=== PATIENT | female | born 1995 | race Caucasian/White ===

== ENCOUNTER 2016-06-29 00:01 | Emergency (ER) | payer MEDICAID ==
[2016-06-29] MEDS ORDERED: ALBUTEROL SULFATE 2.5 MG/0.5 ML VIAL.NEB IH ONE ×2 (00:04→00:21)
[2016-06-29 00:13] VITALS: BP 132/69
--- NOTE | 2016-06-29 00:29 | ERNOTE ---
Dyspnea - General Presenting Symptoms: shortness of breath Time Seen by Provider: 06/29/16 00:04 Source: patient Exam Limitations: no limitations - Immun/Allergies/Home Medications Immunizations: IMMUNIZATION HX History of Influenza Vaccine No Hx Pneumococcal Vaccination No Home Medications: HOME MEDICATIONS Albuterol Sulfate [Proair Respiclick] 90 mcg IH Q4H PRN #1 bhargav 06/29/16 [ Last Taken Unknown] - History of Present Illness Narrative: Patient was in the OB unit with a friend and fell asleep briefly and woke up short of breath. She has a history of asthma and forgot her rescue inhaler at home, denies any causing events. She only uses her inhaler about once a month Date (Duration): 06/28/16 Time (Timing): 23:45 Treatment [employer]PER[employer]OR [employer]: none Initiating event: Reports: out of meds. Denies: upper resp illness, sports/ exercise, aspiration/choking, allergy to environment, exposure to smoke, exposure to mold Frequency of episodes: Reports: occassional episodes Associated Symptoms-Dyspnea: Denies: fever/chills, sweating, chest pain/ discomfort, palpitations, cough Prior Treatment: Denies: recently seen, currently on antibiotics Review of Systems - Review of Systems Constitutional: Absent: recent illness, fever, chills ENT: Absent: nose congestion, nasal drainage, sore throat Respiratory: Present: See HPI, shortness of breath. Absent: cough Cardiology: Absent: chest pain Gastrointestinal/Abdominal: Absent: nausea, vomiting, diarrhea, abdominal pain Genitourinary: Present: no symptoms reported Neurological: Absent: headache - Patient's Past Medical History Patient History - Medical: No pertinent hx Patient History - Cardiac/Respiratory: Asthma Patient History - Cancer: No Hx of Cancer Patient History - Surgical Procedures: No surgical history Patient History - Other: None - Social History Living Situations: home Psych History: Hx of Depression Smoking Status: Never smoker Alcohol Use: none Drug Use: none - Immunizations Hx Pneumococcal Vaccination: No History of Influenza Vaccine: No Physical Exam - Physical Exam General Appearance: Present: wd/wn, alert, mild distress, anxious Eye Exam: Normal inspection: bilateral, PERRL: bilateral Ears, Nose, Throat: Present: normal except -, nasal congestion, pharyngeal erythema - mild Neck: Present: normal inspection, nontender, supple. Absent: lymphadenopathy (R ), lymphadenopathy (L) Respiratory: Present: respiratory distress - slight, decreased breath sounds, expiration (prolonged) Cardiovascular/Chest: Present: regular rate, rhythm, no murmur Gastrointestinal/Abdominal: Present: nontender Neurological Exam: Present: alert, oriented, normal mood/affect Skin Exam: Present: normal color, warm/dry ED Progress - Vital Signs Patient's Vital Signs:: I have reviewed the patient's vital signs. Vital Signs: Vital Signs 06/29/16 00:03 Temperature 37.2 C Pulse Rate 108 H Respiratory 28 H Rate Blood Pressure 132/69 O2 Sat by Pulse 97 Oximetry - Progress/Reassessment Chief Complaint: Dyspnea Progress Note-Subjective: 06/29/16 00:24 feeling much better after neb treatment lungs clear to auscultation patient would like to go home Departure Clinical Impression: Asthma attack - Departure Disposition: Home self-care Condition: Good Instructions: Asthma, Adult, [id number] Referrals: Desean Wills MD [Non Staff Physicians] - Prescriptions: Albuterol Sulfate [Proair Respiclick] 90 mcg IH Q4H PRN #1 [email or web address] PRN Reason: Shortness Of Breath
--- OUTSIDE RECORDS SUMMARY | 2016-06-29 00:39 | XMS REPORT | Continuity of Care Document ---
:1995 Author Organization [employer] [facility] [place] [address] Care Team Providers Name Role Phone Desean Wills Primary Care Provider [phone] Source Comments This disclosure is being made pursuant to the iMeigu program and maynot contain all information available regarding this patient.[employer] [facility] Active Allergies and Adverse Reactions No Known Allergies Current Medications Be aware that medications may not be up to date as of this document. Alwaysverify current medications with the patient. No known medications Active Problems Not on file Most Recent Encounters Date Type Specialty Providers Description 05/26/2016 Ophth Exam Ophthalmology Camille Barry, OD Myopia, bilateral - Both Eyes (Primary Dx); Astigmatism, bilateral - Both Eyes Social History Tobacco Use Types Packs/Day Years Used Date Never Smoker Plan of Care Date Type Specialty Providers Description 03/04/2017 Appointment Ophthalmology Camille Barry, OD [facility] [place] [address] [phone] (Fax) Health Maintenance Due Date Last Done Comments HPV Vaccine (9-26YO) (1 of 3 - Female 3 Dose Series) 2005 Chlamydia Screening 2010 Meningococcal Vaccine (1 of 1) 2010 Tetanus/Pertussis (1 - Tdap) 2013 Pap Smear 09/16/2015 Influenza Immunization (#1) 2015 Results from Last 3 Months Not on file
--- OUTSIDE RECORDS SUMMARY | 2016-06-29 00:39 | XMS REPORT | Continuity of Care Document ---
:1995 Author Organization [facility] ([facility]) Address [place] [address] Phone [phone] Care Team Providers Name Role Phone Unavailable Primary Care Provider Unavailable Source Comments This disclosure is being made pursuant to the Care Everywhere program, applicable federal and state laws, and may not contain all informaitonavailable regarding this patient.[facility] ([facility]) Active Allergies and Adverse Reactions No Active Allergies Current Medications Not on file Active Problems Problem Noted Date Abdominal pain, epigastric 12/30/2006 Social History Tobacco Use Types Packs/Day Years Used Date Never Assessed Last Filed Vital Signs Vital Sign Reading Time Taken Blood Pressure 119/69 12/30/2006 2:23 PM CDT Pulse 106 12/30/2006 2:23 PM CDT Temperature 36.8 C (98.24 F) 12/30/2006 2:23 PM CDT Respiratory Rate 24 12/30/2006 2:23 PM CDT Height 1.485 m (4' 10.46") 12/30/2006 2:23 PM CDT Weight 57.797 kg (127 lb 6.7 oz) 12/30/2006 2:23 PM CDT Body Mass Index 26.21 12/30/2006 2:23 PM CDT Oxygen Saturation - - Plan of Care Health Maintenance Due Date Last Done Comments Hepatitis B Vaccine (1 of 3 - Primary Series) 1994 HPV Vaccine (1 of 3 - Female/Unknown 3 Dose Series) 2005 Tdap Vaccine 2005 Meningococcal Vaccine (1 of 1) 2010 Cervical Cancer Screening 2012 Lipid Disorder Screening 2012 MMR Vaccine 2012 Td Vaccine 2012 Varicella Vaccine (1 of 2 - Adult - No Evidence of 2012 Immunity) Influenza Vaccine: Seasonal (#1) 11/18/2015 Results from Last 3 Months Not on file
== END 2016-06-29 00:30 | disposition home or self-care (01) ==
LOC: ER 00:01
DX: R06.02 Shortness of breath (principal); J45.901 Unspecified asthma with (acute) exacerbation

== ENCOUNTER 2019-09-06 18:01 | Inpatient (IN) ==
[2019-09-06 19:10] LABS: Random Urine Total Protein 18.8 mg/dL (0-12)
[2019-09-06 19:12] LABS: Hematocrit 32.1 % (37.0-47.0); Mean Cell Volume 86.8 fl (78-100); Mean Corpuscular Hemoglobin 29.7 pg (27-31); Mean Corpuscular Hgb Conc 34.3 g/dl (32-36); Neutrophil # 9.4 K/mm3 (1.3-6.0); Neutrophil % 76.4 % (42-75.0); Platelet Count 226 K/mm3 (150-450); Red Cell Distribution Width 13.3 % (11.5-14.0); White Blood Count 12.3 K/mm3 (4.0-10.5)
[2019-09-06 19:14] LABS: Cocaine Ur Negative (NEGATIVE); Urine Barbiturate Negative (NEGATIVE); Urine Benzodiazepines Negative (NEGATIVE); Urine Opiates Negative (NEGATIVE); Urine PCP Negative (NEGATIVE); Urine THC Negative (NEGATIVE)
[2019-09-06 19:29] LABS: Albumin * 2.5 gm/dl (3.4-5.0); BUN/Creatinine Ratio 10.2 (9.0-21.6); Bilirubin, Total 0.2 mg/dL (0.0-1.1); Ca. Corrected For Albumin 9.6 mg/dL (8.4-10.2); Calcium * 8.7 mg/dL (7.9-10.9); Carbon Dioxide 21.4 mmol/L (24-32.6); Potassium 3.4 mmol/L (3.4-4.6); Total Protein 6.5 gm/dL (6.2-8.2)
[2019-09-06] MEDS ORDERED: OXYTOCIN/DEXTROSE 5%-WATER 30 UNITS/500 ML BAG IV ONE (19:44)
[2019-09-06] MEDS ORDERED: BUTORPHANOL TARTRATE 2 MG/ML VIAL IV PRN ×2 (19:44)
[2019-09-06] MEDS ORDERED: LIDOCAINE HCL 50 ML VIAL PERI PRN (19:44)
[2019-09-06] MEDS ORDERED: RINGER'S SOLUTION,LACTATED 1,000 ML IV ONE (19:44)
[2019-09-06] MEDS ORDERED: RINGER'S SOLUTION,LACTATED 1,000 ML IV PRN (19:44)
[2019-09-06] MEDS ORDERED: ONDANSETRON 4 MG TAB.RAPDIS PO PRN (19:44)
--- NOTE | 2019-09-06 20:13 | HP ---
Chief Complaint - Chief Complaint Date of Service: 09/06/19 Time of Service: 20:06 Chief Complaint: Vaginal pressure History of Present Illness: 23 year old at 40w 1d who normally receives her care in [place] but presented here today complaining of vaginal pressure. She also reported epigastric and RUQ pain. She reported lightheadedness and dizziness. She reports contractions. She denies vb or lof. Fetus is active. The patient had late care but she does have good dates. She is dated by a 20 week ultrasound. She is varicella nonimmune and GBS negative Medical History (Last Reviewed 09/06/19 @ 20:10 by Carisa Lamas MD) History of asthma Surgical History: Surgical History (Last Reviewed 09/06/19 @ 20:10 by Carisa Lamas MD) Hx of appendectomy Family History: Family History (Last Reviewed 09/06/19 @ 20:10 by Carisa Lamas MD) Other No pertinent family history Social History: (Last Reviewed 09/06/19 @ 20:10 by Carisa Lamas MD) Tobacco: Smoking Status: Never smoker Review Of Systems (GEN) - Review of Systems Generalized/Overall Review: Present: No Symptoms Reported EENTM: Present: No Symptoms Reported Respiratory: Present: No Symptoms Reported Cardiac: Present: No Symptoms Reported Abdominal: Present: Abdominal Pain Genitourinary: Present: Other - vaginal pressure Musculoskeletal: Present: No Symptoms Reported Neurological: Present: No Symptoms Reported Skin: Present: No Symptoms Reported Endocrine: Present: No Symptoms Reported Immunizations: IMMUNIZATION HX Immunizations Up to Date Yes History of Influenza Vaccine No Hx Pneumococcal Vaccination No Allergies/Adverse Reactions: Allergies Allergy/AdvReac Type Severity Reaction Status Date / Time No Known Drug Allergies Allergy Verified 08/20/19 23:15 Home Medications: HOME MEDICATIONS Albuterol Sulfate [Proair Respiclick] 90 mcg IH Q4H PRN #1 aer.[email or web address] 06/29/16 [Last Taken Unknown] Vits96/Iron Fum/Folic [ S] 1 tab PO DAILY 06/05/19 [Last Taken Unknown] Exam - Exam Vital Signs: Vital Signs - Last Taken Temp 37.1 C 09/06/19 18:10 Pulse 107 H 09/06/19 18:10 Resp 20 09/06/19 18:10 BP 164/75 H 09/06/19 18:10 Pulse Ox 98 09/06/19 18:10 Constitutional: Present: Alert, Oriented x3, Cooperative, No distress ENT Exam: Present: hearing grossly normal Eye Exam: bilateral eye: normal inspection Neck: Present: normal inspection Back Exam: Present: normal inspection, no CVA tenderness Breasts: Present: Exam deferred Respiratory: Present: lungs clear, normal breath sounds Cardiovascular/Chest: Present: regular rate, rhythm Abdomen: Present: soft, nontender, nondistended /Rectal: Present: Other - 2/50/-2 AROM for clear fluid Extremity: Present: non-tender, no calf tenderness Skin Exam: Present: normal color, warm/dry, no cyanosis Neurologic: Present: alert, normal mood/affect, oriented x 3 Appearance: Present: appropriate appearance, appropriate insight Eye contact: Present: cooperative, good eye contact Thoughts: Present: normal thought pattern Diagnostic Studies: Abnormal Lab Results 09/06/19 09/06/19 09/06/19 Range/Units 18:50 19:05 19:05 WBC 12.3 H (4.0-10.5) K/mm3 RBC 3.70 L (4.2-5.4) M/mm3 Hgb 11.0 L (12.5-16.0) gm/dL Hct 32.1 L (37.0-47.0) % Immature Gran % (Auto) 0.60 H (0.001-0.429) % Immature Gran # (Auto) 0.08 H (0.000-0.0310) K/mm3 Neutrophils % 76.4 H (42-75.0) % Lymphocytes % 12.8 L (20-51) % Eosinophils % 4.1 H (0.0-3.0) % Neutrophils # 9.4 H (1.3-6.0) K/mm3 Carbon Dioxide 21.4 L (24-32.6) mmol/L Anion Gap 15.0 H (6.8-13.8) mmol/L Est GFR (Non-Af Amer) 133 H (60-130) mL/min ALT 12 L (19-67) U/L Albumin 2.5 L (3.4-5.0) gm/dl U Random Total Protein 18.8 H (0-12) mg/dL Laboratory Results WBC 12.3 K/mm3 (4.0-10.5) H 09/06/19 19:05 RBC 3.70 M/mm3 (4.2-5.4) L 09/06/19 19:05 Hgb 11.0 gm/dL (12.5-16.0) L 09/06/19 19:05 Hct 32.1 % (37.0-47.0) L 09/06/19 19:05 MCV 86.8 fl (78-100) 09/06/19 19:05 MCH 29.7 pg (27-31) 09/06/19 19:05 MCHC 34.3 g/dl (32-36) 09/06/19 19:05 RDW 13.3 % (11.5-14.0) 09/06/19 19:05 Plt Count 226 K/mm3 (150-450) 09/06/19 19:05 MPV 10.0 fl (8-12.5) 09/06/19 19:05 Immature Gran % (Auto) 0.60 % (0.001-0.429) H 09/06/19 19:05 Immature Gran # (Auto) 0.08 K/mm3 (0.000-0.0310) H 09/06/19 19:05 Neutrophils % 76.4 % (42-75.0) H 09/06/19 19:05 Lymphocytes % 12.8 % (20-51) L 09/06/19 19:05 Monocytes % 5.8 % (0.0-9) 09/06/19 19:05 Eosinophils % 4.1 % (0.0-3.0) H 09/06/19 19:05 Basophils % 0.3 % (0.0-1.0) 09/06/19 19:05 Nucleated RBC % 0.0 k/mm3 (0-1) 09/06/19 19:05 Neutrophils # 9.4 K/mm3 (1.3-6.0) H 09/06/19 19:05 Lymphocytes # 1.58 k/mm3 (1.5-3.5) 09/06/19 19:05 Monocytes # 0.7 k/mm3 (0.0-1.0) 09/06/19 19:05 Eosinophils # 0.5 k/mm3 (0.0-0.7) 09/06/19 19:05 Absolute Basophils 0.0 k/mm3 (0.0-0.1) 09/06/19 19:05 Sodium 139 mmol/L (132-142) 09/06/19 19:05 Plasma Sodium 139 mmol/L (130-142) 09/06/19 19:05 Potassium 3.4 mmol/L (3.4-4.6) 09/06/19 19:05 Chloride 106 mmol/L (97-106) 09/06/19 19:05 Carbon Dioxide 21.4 mmol/L (24-32.6) L 09/06/19 19:05 Anion Gap 15.0 mmol/L (6.8-13.8) H 09/06/19 19:05 BUN 6 mg/dL (3-23) 09/06/19 19:05 Creatinine 0.59 mg/dL (0.4-1.4) 09/06/19 19:05 Est GFR (Non-Af Amer) 133 mL/min (60-130) H 09/06/19 19:05 BUN/Creatinine Ratio 10.2 (9.0-21.6) 09/06/19 19:05 Random Glucose 105 mg/dL (70-110) 09/06/19 19:05 Calcium 8.7 mg/dL (7.9-10.9) 09/06/19 19:05 Calcium Adj for Albumin 9.6 mg/dL (8.4-10.2) 09/06/19 19:05 Total Bilirubin 0.2 mg/dL (0.0-1.1) 09/06/19 19:05 AST 14 U/L (0-48) 09/06/19 19:05 ALT 12 U/L (19-67) L 09/06/19 19:05 Alkaline Phosphatase 108 U/L (50-170) 09/06/19 19:05 Total Protein 6.5 gm/dL (6.2-8.2) 09/06/19 19:05 Albumin 2.5 gm/dl (3.4-5.0) L 09/06/19 19:05 Ur Random Creatinine 177.5 mg/dL (60-200) 09/06/19 18:50 U Random Total Protein 18.8 mg/dL (0-12) H 09/06/19 18:50 U [place] Prot/Creat Ratio 106 mg/gm (0-199) 09/06/19 18:50 Urine Opiates Screen Negative (NEGATIVE) 09/06/19 18:50 Barbiturate Screen Negative (NEGATIVE) 09/06/19 18:50 Ur Phencyclidine Scrn Negative (NEGATIVE) 09/06/19 18:50 Urine Amphetamine Negative (NEGATIVE) 09/06/19 18:50 U Benzodiazepines Scrn Negative (NEGATIVE) 09/06/19 18:50 Urine Cocaine Screen Negative (NEGATIVE) 09/06/19 18:50 Urine Marijuana (THC) Negative (NEGATIVE) 09/06/19 18:50 Assessment/Plan - Narrative Narrative: 23 year old at 40w 1d Proceed with IOL due to GHTN and also post due date. AROM done. Pitocin ordered. GBS negative: prophylaxis not indicated
[2019-09-06] MEDS ORDERED: NALOXONE HCL 1 MG/1 ML SYRG IV PRN (22:07)
[2019-09-06] MEDS ORDERED: BUPIVACAINE HCL/0.9 % NACL/PF 250 ML EP PRN (22:07)
[2019-09-06] MEDS ORDERED: ONDANSETRON HCL/PF 2 MG/ML VIAL IV PRN (22:07)
[2019-09-06] MEDS ORDERED: fentaNYL CITRATE/PF 50 MCG/ML AMPUL IT SCH (22:15)
--- NOTE | 2019-09-06 22:53 | ANES ---
Anesthesia Pre Procedure Eval Vitals/Labs: Last Vital Signs Temp 37.1 C 09/06/19 18:10 Pulse 107 H 09/06/19 18:10 Resp 20 09/06/19 18:10 BP 164/75 H 09/06/19 18:10 Pulse Ox 98 09/06/19 18:10 HOME MEDICATIONS RX: Albuterol Sulfate [Proair Respiclick] 90 mcg IH Q4H PRN #1 aer.[email or web address] 06/29/16 [Last Taken Unknown] Vits96/Iron Fum/Folic [ S] 1 tab PO DAILY 06/05/19 [Last Taken Unknown] Allergies/Adverse Reactions: Allergies Allergy/AdvReac Type Severity Reaction Status Date / Time No Known Drug Allergies Allergy Verified 08/20/19 23:15 - Planned Procedure Planned Procedure: Active Labor Medication List Reviewed:: Yes Allergies Verified: Yes Medical History (Last Reviewed 09/06/19 @ 22:52 by Desean Pickard CRNA) History of asthma Surgical History (Last Reviewed 09/06/19 @ 22:52 by Desean Pickard CRNA) Hx of appendectomy Family History (Last Reviewed 09/06/19 @ 22:52 by Desean Pickard CRNA) Other No pertinent family history - Family Anesthesia History Family History:: no untoward family reactions to anesthesia, no familial bleeding tendencies, no family history of clotting disorders, no family history of premature - Airway/Neck/Teeth Within Normal Limits:: Yes Teeth Condition: intact Neck Exam: full range of motion Mallampatti Score: 2 Thyromental (T-M) distance: > 6 cm Mandibulo Hyoid distance: > 3 cm - Respiratory Respiratory History: asthma Respiratory Physical: lungs clear Sleep Apnea currently treated: No Sleep Apnea by current assessment: No - Cardiovascular Tolerate Activity: Fair Heart Sounds: S1 & S2, Regular - Gastrointestinal NPO since: 2400 - Anesthesia Assessment and Plan ASA Class: PS, II, E Anesthesia Type Plan: Epidural - CSE for labor analgesia
--- NOTE | 2019-09-06 23:20 | ANES ---
Post Anesthesia Discharge - Transfer of Care Transfer of Care handoff given to nurse: Yes - Discharge from PACU Discharge from PACU when meets criteria: Yes - Comfortable post CSE
--- NOTE | 2019-09-06 23:27 | ANES ---
Anesthesia Procedure Note Procedure Note: ANESTHESIA PROCEDURE NOTE Date of Procedure: [09/06/2019 Time of procedure: 2250. Performed by: DAVE Palacios CRNA, MSN Observatory Director: Nola Dale RN. Preprocedure diagnosis: Active labor, labor pain. Post procedure diagnosis: Same. Procedure:Epidural for labor analgesia L3-4. Indications: Labor pain. Findings: See below. Details of the procedure: The patient was placed on the side of the bed in sitting positionand prepped with DuraPrep then draped in a sterile fashion. Lidocaine 1% was infiltrated to the skin and subcutaneous tissues at the level of the L3-4 interspace. An 18-gauge Touhy needle was used to approach the epidural space with loss of resistance technique. Once loss of resistance was achieved a 27-gauge spinal needle was attempted to pass through the epidural needle but met resistance. In lieu of attempting a new pass on reaching the epidural space, I threaded the epidural catheter approximately 4 cm. After careful aspiration, 3 mL of lidocaine 1.5% with 1-200,000 epi was injected without change in maternal heart rate or sensorium. 100 mcg of fentanyl was then injected and the catheter was taped in place. She received relatively early onset of analgesia. EBL: Minimal. Fluids: N/A. Specimen: N/A. Post procedure condition: The patient tolerated the procedure well with good relief. No complications were noted. Thank you for this consultation. Desean Pickard CRNA, DAVE, MSN
--- NOTE | 2019-09-06 23:34 | ANES ---
Post Anesthesia Assessment - Vital Signs Vitals: Last Vital Signs Temp 37.1 C 09/06/19 18:10 Pulse 107 H 09/06/19 18:10 Resp 20 09/06/19 18:10 BP 164/75 H 09/06/19 18:10 Pulse Ox 98 09/06/19 18:10 Airway Patency: Normal - Mental Status Level Of Consciousness: Awake, Alert, Appropriate - Pain Level Pain Score: 0 - N/V Assessment Nausea/Vomiting Presence: None Dehydration:: No
--- NOTE | 2019-09-07 05:23 | OR ---
Operative Report - Dictated Report Narrative: Date of delivery: 09/07/2019 Time of delivery: 0458 Gender: female APGARS: 9/9 weight: 2987 grams Procedure: Description of the procedure: The patient is a 23 year old at 40w 2d who presented to labor and delivery with elevated BPs in the mild to severe range. She underwent IOL for GHTN. She was ruptured and started on pitocin. She progressed to complete dilation. She delivered a viable female infant in VAN presentation. After delivery of the head a double nuchal cord was noted and it was loose and thus both loops were reduced prior to delivery. The shoulders delivered without any difficulty followed by the rest of the infant. Cord clamping was delayed for 60 seconds. The cord was clamped and cut. Cord blood was collected. The placenta was delivered by expression and appeared intact. EBL: 100 mL Complications: none Specimens: cord blood History for Definition: * The number of deliveries resulting in a live the patient experienced prior to current hospitalization * The previous delivery of live twins or any live multiple gestation is considered one live event. *If primagravida or nulliparous is documented select zero for the number of previous live births. Live Events: 0
[2019-09-07] MEDS ORDERED: GLYCERIN/WITCH HAZEL LEAF 40 APPL BOX TP PRN (05:24)
[2019-09-07] MEDS ORDERED: BENZOCAINE/MENTHOL 81 SPRAY CAN TP PRN (05:24)
[2019-09-07] MEDS ORDERED: HYDROCORTISONE 30 APPL TUBE TP PRN (05:24)
[2019-09-07] MEDS ORDERED: SENNOSIDES 8.6 MG TABLET PO PRN (05:24)
[2019-09-07] MEDS ORDERED: BISACODYL 10 MG SUPP.RECT RC PRN (05:24)
[2019-09-07] MEDS ORDERED: diphenhydrAMINE HCL 25 MG CAPSULE PO PRN (05:24)
[2019-09-07] MEDS ORDERED: OXYTOCIN/DEXTROSE 5%-WATER 30 UNITS/500 ML BAG IV ONE (05:24)
[2019-09-07] MEDS ORDERED: HYDROcodone/ACETAMINOPHEN 1 EACH TABLET PO PRN (05:24)
[2019-09-07] MEDS: IBUPROFEN 800 MG TABLET PO PRN ×2 (09:22→15:47)
[2019-09-07] MEDS: DOCUSATE SODIUM 100 MG CAPSULE PO SCH ×2 (09:22→20:31)
[2019-09-07] MEDS: HYDROcodone/ACETAMINOPHEN 1 EACH TABLET PO PRN (15:47)
[2019-09-07] MEDS ORDERED: ALBUTEROL SULFATE 2.5 MG/0.5 ML VIAL.NEB IH PRN (22:40)
[2019-09-08] MEDS: IBUPROFEN 800 MG TABLET PO PRN ×2 (01:55→08:16)
[2019-09-08] MEDS: HYDROcodone/ACETAMINOPHEN 1 EACH TABLET PO PRN ×2 (01:55→08:16)
[2019-09-08] MEDS: DOCUSATE SODIUM 100 MG CAPSULE PO SCH ×2 (08:16→20:18)
--- NOTE | 2019-09-08 08:43 | PN ---
Subjective - Date and Time Seen Date: 09/08/19 Time: 08:41 Subjective Narrative: Patient without complaints Objective Objective Narrative: See vital signs - Review of Systems Generalized/Overall Review: Reports: No Symptoms Reported Misc: All systems neg except as marked - Vitals Vitals: Last Vital Signs Temp 36.1 C 09/08/19 01:00 Pulse 93 09/08/19 01:00 Resp 16 09/08/19 01:00 BP 125/75 09/08/19 01:00 Pulse Ox 99 09/08/19 01:00 - Exam Constitutional: Present: Alert, Oriented x3, Cooperative, No distress ENT Exam: Present: hearing grossly normal Abdomen: Present: soft, nontender, nondistended - fundus is firm Extremity: Present: non-tender, no calf tenderness Skin Exam: Present: normal color, warm/dry, no cyanosis Neurologic: Present: alert, normal mood/affect, oriented x 3 Appearance: Present: appropriate appearance, appropriate insight Eye contact: Present: cooperative, good eye contact, normal speech Thoughts: Present: normal thought pattern Cauti Physician Documentation - Urinary Catheter Management Urethral (Reid) Urethral Indwelling: No Date of Insertion: 09/07/19 Time of Insertion: 00:10 Date of Removal: 09/07/19 Time of Removal: 04:50 Assessment/Plan Plan Narrative: PPD 1 s/p Doing well Discharge tomorrow Follow-up with doctor jackeline Holland in 6 weeks
[2019-09-09 07:52] VITALS: BP 110/62
[2019-09-09] MEDS: IBUPROFEN 800 MG TABLET PO PRN (09:19)
[2019-09-09] MEDS: DOCUSATE SODIUM 100 MG CAPSULE PO SCH (09:19)
[2019-09-09] MEDS: HYDROcodone/ACETAMINOPHEN 1 EACH TABLET PO PRN (09:19)
--- NOTE | 2019-09-09 09:21 | PN ---
Subjective - Date and Time Seen Date: 09/09/19 Time: 09:19 Subjective Narrative: Patient without complaints Objective Objective Narrative: See vital signs - Review of Systems Generalized/Overall Review: Reports: No Symptoms Reported Misc: All systems neg except as marked - Vitals Vitals: Last Vital Signs Temp 36.1 C 09/09/19 07:00 Pulse 89 09/09/19 07:00 Resp 18 09/09/19 07:00 BP 110/62 09/09/19 07:00 Pulse Ox 99 09/09/19 07:00 - Exam Constitutional: Present: Alert, Oriented x3, Cooperative, No distress Abdomen: Present: soft, nontender, nondistended - fundus is firm Extremity: Present: non-tender, no calf tenderness Skin Exam: Present: normal color, warm/dry, no cyanosis Neurologic: Present: alert, normal mood/affect, oriented x 3 Appearance: Present: appropriate appearance, appropriate insight Eye contact: Present: cooperative, good eye contact Thoughts: Present: normal thought pattern Cauti Physician Documentation - Urinary Catheter Management Urethral (Reid) Urethral Indwelling: No Date of Insertion: 09/07/19 Time of Insertion: 00:10 Date of Removal: 09/07/19 Time of Removal: 04:50 Assessment/Plan Plan Narrative: PPD 2 s/p Doing well Discharge today Follow-up in 6 weeks with your doctor in [place] or sooner for any other concerns
== END 2019-09-09 11:00 | disposition home or self-care (01) ==
LOC: OB 18:01
PROVIDERS: ADMIT Obstetrics & Gynecology; ATTEND Obstetrics & Gynecology